=== PATIENT | male | born 1990 | race Caucasian/White ===

== ENCOUNTER 2021-08-18 21:29 | Emergency (ER) | payer MEDICAID ==
[~2021-08-18] VITALS: Ht 185.4 cm; Wt 68.0 kg
[2021-08-18 21:30] VITALS: BP 153/95
--- NOTE | 2021-08-18 21:33 | NUR ---
PT OFFLOADED TO LOBBY IN STABLE CONDITION.
--- NOTE | 2021-08-18 21:55 | NUR ---
pt called in lobby and outside, no answer.
--- NOTE | 2021-08-18 22:05 | NUR ---
PT CALLED IN LOBBY AND OUTSIDE WITH NO ANSWER. PATIENT LEFT WITHOUT BEING SEEN BY DR. ROGERS. NO FURTHER CARE PROVIDED FOR PATIENT.
[2021-08-19] MEDS ORDERED: PENI500T20 PO (00:48)
[2021-08-19] MEDS ORDERED: ACET-8386 PO (00:48)
== END 2021-08-18 21:55 | disposition left against medical advice (07) ==
LOC: EDBD → MED 21:29
DX: K08.89 Other specified disorders of teeth and supporting structures (principal); Z53.21 Procedure and treatment not carried out due to patient leaving prior to being seen by health care provider

== ENCOUNTER 2021-08-18 23:30 | Emergency (ER) | payer MEDICAID ==
[~2021-08-18] VITALS: Ht 182.9 cm; Wt 72.6 kg
[2021-08-18 23:39] VITALS: BP 135/90
--- NOTE | 2021-08-18 23:39 | NUR ---
to bed ambulatory
--- NOTE | 2021-08-18 23:55 | NUR ---
PT BIB SELF FOR C/C TOOTH ACHE X 2 WEEKS. PT REPORTS HIS TOOTH CRACKED YESTERDAY, VISUALLY NOTED TO LEFT LOWER MOLAR. PAIN 10/10. NO NOTED BLEEDING OR SWELLING. MED HX: DENIES ALLERGIES: NKA
[2021-08-19] MEDS ORDERED: HYDROcodone/APAP 5/325 MG 1 TAB TAB PO ONE (00:45)
[2021-08-19] MEDS ORDERED: PENICILLIN V POTASSIUM 250 MG TAB PO ONE (00:45)
[2021-08-19] MEDS ORDERED: PENI500T20 PO (00:48)
[2021-08-19] MEDS ORDERED: ACET-8386 PO (00:48)
[2021-08-19 00:58] VITALS: BP 135/90
--- NOTE | 2021-08-19 00:58 | NUR ---
Patient discharged with v/s stable. Written and verbal after care instructions given and explained. Patient alert, oriented and verbalized understanding of instructions. Ambulatory with steady gait. All questions addressed prior to discharge. ID band removed. Patient advised to follow up with PMD. Rx of NORCO AND PENICILLIN V POTASSIUM given. Patient educated on indication of medication including possible reaction and side effects. Opportunity to ask questions provided and answered.
== END 2021-08-19 00:58 | disposition home or self-care (01) ==
LOC: MED 23:30
DX: K08.89 Other specified disorders of teeth and supporting structures (principal); Z79.899 Other long term (current) drug therapy
CPT/HCPCS: 99283

== ENCOUNTER 2023-01-22 08:29 | Emergency (ER) | payer MEDICAID ==
[~2023-01-22] VITALS: Ht 182.9 cm; Wt 74.8 kg
[~2023-01-22 08:29] MED LIST: ACET-8905 PO; PENI500T20 PO
--- NOTE | 2023-01-22 08:30 | NUR ---
32/M BIBA FROM STREET C/O RIGHT LEG PAIN ONSET 2 DAYS AGO. DENIES INJURY OR FALL. REPORTS NONAMBULATORY DUE TO PAIN. AAO4, VITALS STABLE.
[2023-01-22 08:32] VITALS: BP 160/84
[2023-01-22] MEDS ORDERED: CEPH-588 PO (08:50)
[2023-01-22] MEDS ORDERED: NAPR-1704 PO (08:50)
--- NOTE | 2023-01-22 08:55 | NUR ---
UPON DC, PT BECAME VERBALLY AGGRESSIVE, REFUSING TO LEAVE. PT YELLING AT STAFF, STATING HE DOES NOT WANT TO GO. PT USING PROFANITY AGAINST STAFF AND SECURITY. CALLED PD AT THIS TIME. PT REFUSING TO SIGN ANY DISPO, PT REFUSING CRUTCHES.
--- NOTE | 2023-01-22 09:12 | NUR ---
Patient discharged with v/s stable. Written and verbal after care instructions given and explained. Patient alert, oriented and verbalized understanding of instructions. Ambulatory with steady gait. All questions addressed prior to discharge. ID band removed. Patient advised to follow up with PMD. Rx given. Patient educated on indication of medication including possible reaction and side effects. PT LEFT AMBULATING ACCOMPANIED BY PD. PT REFUSED TO TAKE CRUTCHES. AMBULATED OUT IN STEADY GAIT.
== END 2023-01-22 09:12 | disposition home or self-care (01) ==
LOC: MED 08:29
DX: S89.91XA Unspecified injury of right lower leg, initial encounter (principal); L03.012 Cellulitis of left finger; Z79.1 Long term (current) use of non-steroidal anti-inflammatories (NSAID); Z79.2 Long term (current) use of antibiotics; Z79.891 Long term (current) use of opiate analgesic; X58.XXXA Exposure to other specified factors, initial encounter; Y92.89 Other specified places as the place of occurrence of the external cause; Y93.89 Activity, other specified; Y99.8 Other external cause status
CPT/HCPCS: 99283